=== PATIENT | male | born 1980 | race Caucasian/White ===

== ENCOUNTER 2017-05-24 05:45 | Day surgery (SDC) | payer OTHER ==
[~2017-05-24] VITALS: Ht 185.4 cm; Wt 85.6 kg
[2017-05-24 06:20] VITALS: Ht 185.4 cm; Wt 85.6 kg
[2017-05-24 07:12] VITALS: BP 129/74; PULSE 60; RESP 22
--- NOTE | 2017-05-24 07:45 | OPPN ---
Date/Time of Note Date/Time of Note DATE: 05/24/17 TIME: 07:44 Operative Report Preoperative Diagnosis Abdominal pain Chronic heartburn Postoperative Diagnosis Hiatal hernia and gastroesophageal reflux disease Gastritis with erosions Operation/Procedure Performed Esophagogastroduodenoscopy and biopsy Surgeon see signature line veterinary technician assistant None Anesthesia: moderate sedation Estimated blood loss: none Transfusion Required none Specimen Gastric mucosal biopsy Grafts/Implants none Complications none MJ REED MD May 24, 2017 07:45
[2017-05-24] MEDS ORDERED: MIDAZOLAM 1 MG/ML 2 ML INJ ONE ×2 (07:46)
[2017-05-24] MEDS ORDERED: FENTAnyl 50 MCG/ML VIAL ONE (07:46)
[2017-05-24 07:58] VITALS: BP 126/60; RESP 29
--- NOTE | 2017-05-24 12:30 | GILP ---
DATE OF PROCEDURE: NAME OF PROCEDURES: Esophagogastroduodenoscopy and biopsy. SURGEON: Mj Peng MD. PREOPERATIVE DIAGNOSES: 1. Abdominal pain. 2. Chronic heartburn. POSTOPERATIVE DIAGNOSES: 1. Hiatal hernia. 2. Gastroesophageal reflux disease. 3. Gastritis with erosions. 4. Gastric mucosal biopsies were taken for Helicobacter pylori test. INDICATION FOR THE PROCEDURE: Mr. Jenae Villareal is a 36-year-old male patient who had upper ab dominal pain and chronic heartburn, not responding to therapy. The patient was scheduled for endosc opic examination for further evaluation. The procedure and possible complications were well explained to the patient. The patient understood and consented to the procedure. DESCRIPTION OF PROCEDURE: Under the influence of fentanyl and Versed, the gastroscope was carefully introduced into the esophagus and under direct vision, it was advanced to the stomach and through t he pylorus into the duodenal bulb and descending duodenum. FINDINGS: ESOPHAGUS: The patient had hiatal hernia and gastroesophageal reflux disease. STOMACH: He had gastritis with erosions. Gastric mucosal biopsies were taken for H. pylori test. DUODENUM: Normal. He tolerated the procedure very well and there was no complication from the procedure. At the end o f the procedure, he was awake with stable vital signs and he was discharged home to the care of his family. IMPRESSION: Please see postoperative diagnoses. PLAN: 1. Pantoprazole 40 mg p.o. q.a.m. 2. Zantac 300 mg p.o. at bedtime. 3. Await H. pylori test report. Dictated By: MJ SAUCEDA/FLYNN Conf#: [id number] DID#: [id number]
== END 2017-05-24 19:15 | disposition home or self-care (01) ==
LOC: GIL 05:45
PROVIDERS: ATTEND Internal Medicine Gastroenterology
DX: K44.9 Diaphragmatic hernia without obstruction or gangrene (principal); K21.9 Gastro-esophageal reflux disease without esophagitis; K29.70 Gastritis, unspecified, without bleeding
CPT/HCPCS: 43239; 87081; J2250; J3010; Z7610